=== PATIENT | female | born 1960 | race Asian ===

== ENCOUNTER 2017-01-29 02:02 | Emergency (ER) | payer OTHER ==
[~2017-01-29 02:02] MED LIST: CALCIUM + D 5001 TAB PO; CEL500 PO; EXFORGE 5 MG-321 TAB PO; EXFORGE1 TA1 PO; FLA500 PO; FOLIC ACID PO; FOLIC ACID1 MG; FOSAMAX5 MG PO; IBIFON 600600 MG PO; LAC PO; LEU5; LEVAQUIN750 MG PO; MED4 PO; METFORMIN ER500 M1 PO; METFORMIN500 MG PO; METHOTREXATE2.5 M2; METHOTREXATE2.5 M2 PO; METHOTREXATE25 MG/M1 IJ; PREDNISONE1 MG PO
[2017-01-29 03:50] VITALS: BP 158/86
== END 2017-01-29 03:50 | disposition home or self-care (01) ==
LOC: ED 02:02
DX: I10 Essential (primary) hypertension (principal); E11.9 Type 2 diabetes mellitus without complications; Z79.899 Other long term (current) drug therapy; Z79.84 Long term (current) use of oral hypoglycemic drugs
CPT/HCPCS: J1200; J2765; J7030

== ENCOUNTER 2017-09-10 15:26 | Inpatient (IN) | payer OTHER ==
[~2017-09-10] VITALS: Ht 157.5 cm; Wt 61.7 kg
[~2017-09-10 15:26] MED LIST changes: -METHOTREXATE2.5 M2
[2017-09-10 17:05] LABS: UA SPECIFIC GRAVITY 1.015 (1.005-1.035); microscopic required? YES; urine erythrocyte 2+ (NEGATIVE)
[2017-09-10 17:08] LABS: PLATELET COUNT 301 x10^3mcL (130-400)
[2017-09-10 17:14] LABS: RED CELL DISTRIBUTION WIDTH 14.7 % (11.5-14.5)
[2017-09-10 17:15] LABS: CALCIUM 8.4 mg/dL (8.5-10.1); CARBON DIOXIDE 25.8 mmol/L (21-32); CHLORIDE SERUM 98 mmol/L (98-107); CREATININE SERUM 0.8 mg/dL (0.6-1.0); GFR1 > 60 mL/min; GLUCOSE SERUM 149 mg/dL (74-106); POTASSIUM SERUM 3.2 mmol/L (3.5-5.1); SODIUM SERUM 135 mmol/L (136-145)
[2017-09-10 17:25] LABS: ALBUMIN 3.6 g/dL (3.4-5.0); ALKALINE PHOSPHATASE 81 U/L (46-116); ALT/SGPT 50 U/L (14-59); AST/SGOT 31 U/L (15-37); TOTAL PROTEIN, SERUM 7.6 g/dL (6.4-8.2)
[2017-09-10 17:45] LABS: BAND NEUTROPHIL 16 % (0-10); BASOPHIL 0 % (0-2); MONOCYTE 8 % (0-7); SEGMENTED NEUTROPHILS 70 % (37-75)
[2017-09-10 17:46] LABS: PLATELET MORPHOLOGY PLATELETS NORMAL
[2017-09-10 17:47] LABS: CK-MB < 0.5 ng/mL (0-3.6); CREATINE KINASE 58 U/L (26-192); rbc morphology (normal/abnorm) NORMAL (NORMAL)
[2017-09-10] MEDS ORDERED: AMBIEN5 MG PO (17:55)
[2017-09-10] MEDS ORDERED: METFORMIN HCL500 MG PO (18:00)
[2017-09-10] MEDS ORDERED: COZAAR100 MG PO (18:02)
[2017-09-10] MEDS ORDERED: OMEPRAZOLE40 M1 PO (18:03)
[2017-09-10] MEDS ORDERED: ZOF4 PO (18:05)
[2017-09-10] MEDS ORDERED: ATORVASTATIN CA40 M1 PO (18:08)
[2017-09-10] MEDS ORDERED: LORAZEPAM1 MG PO (18:09)
[2017-09-10] MEDS ORDERED: NOR5 PO (18:11)
[2017-09-10] MEDS ORDERED: NABUMETONE500 MG PO (18:12)
[2017-09-10] MEDS ORDERED: PREDNISONE1 MG PO (18:17)
[2017-09-10 19:24] LABS: MAGNESIUM 1.8 mg/dL (1.8-2.4); PHOSPHOROUS 2.4 mg/dL (2.5-4.9)
[2017-09-10 19:26] LABS: CHOLESTEROL/HDL RATIO 2.5
[2017-09-10 19:27] LABS: AMPHETAMINE QUAL UR NONE DETECTED (NEG <=1000)
[2017-09-10 19:27] LABS: T3 TOTAL 0.67 ng/mL
[2017-09-10 19:32] LABS: FREE T4 1.31 ng/dL (0.76-1.46); FREE THYROXINE INDEX 2.7 ug/dL (1.4-4.5); T4(THYROXINE) 8.2 ug/dL (4.7-13.3)
[2017-09-10 20:13] VITALS: BP 96/59
[2017-09-10 22:52] VITALS: BP 175/95
[2017-09-11] VITALS (7 sets, daily range): BP systolic 89–136; BP diastolic 54–88
[2017-09-11 06:45] LABS: CALCIUM 7.6 mg/dL (8.5-10.1); CARBON DIOXIDE 23.5 mmol/L (21-32); CHLORIDE SERUM 109 mmol/L (98-107); CREATININE SERUM 0.8 mg/dL (0.6-1.0); GFR1 > 60 mL/min; GLUCOSE SERUM 103 mg/dL (74-106); MAGNESIUM 1.7 mg/dL (1.8-2.4); POTASSIUM SERUM 3.4 mmol/L (3.5-5.1); SODIUM SERUM 143 mmol/L (136-145)
[2017-09-11 07:05] LABS: PLATELET COUNT 244 x10^3mcL (130-400); RED CELL DISTRIBUTION WIDTH 14.3 % (11.5-14.5)
[2017-09-11 09:56] LABS: BAND NEUTROPHIL 13 % (0-10); BASOPHIL 0 % (0-2); MONOCYTE 7 % (0-7); PLATELET MORPHOLOGY PLATELETS NORMAL; SEGMENTED NEUTROPHILS 75 % (37-75)
[2017-09-12 05:51] VITALS: BP 140/90
[2017-09-12 07:34] LABS: PLATELET COUNT 237 x10^3mcL (130-400)
[2017-09-12 07:40] LABS: RED CELL DISTRIBUTION WIDTH 15.4 % (11.5-14.5)
[2017-09-12 07:47] LABS: CALCIUM 7.7 mg/dL (8.5-10.1); CARBON DIOXIDE 23.7 mmol/L (21-32); CHLORIDE SERUM 108 mmol/L (98-107); CREATININE SERUM 0.6 mg/dL (0.6-1.0); GFR1 > 60 mL/min; GLUCOSE SERUM 96 mg/dL (74-106); MAGNESIUM 1.7 mg/dL (1.8-2.4); PHOSPHOROUS 1.4 mg/dL (2.5-4.9); POTASSIUM SERUM 3.4 mmol/L (3.5-5.1); SODIUM SERUM 142 mmol/L (136-145)
[2017-09-12 08:42] LABS: BASOPHIL 0 % (0-2)
[2017-09-12 08:44] LABS: rbc morphology (normal/abnorm) ABNORMAL (NORMAL); tear drop cell (dacryocyte) 1+
[2017-09-12 09:30] VITALS: BP 141/85
[2017-09-12 10:44] LABS: BAND NEUTROPHIL 5 % (0-10); SEGMENTED NEUTROPHILS 81 % (37-75)
[2017-09-12 10:45] LABS: MONOCYTE 7 % (0-7)
[2017-09-12 10:46] LABS: MYELOCYTE 0 % (0-2)
[2017-09-12 12:38] VITALS: Ht 157.5 cm; Wt 61.7 kg
[2017-09-12 13:14] VITALS: BP 128/87
[2017-09-12 17:43] VITALS: BP 114/73
[2017-09-12 21:00] VITALS: BP 149/94
[2017-09-13 05:05] VITALS: BP 127/84
[2017-09-13 06:43] LABS: BASOPHIL % 0.2 % (0-2); PLATELET COUNT 271 x10^3mcL (130-400)
[2017-09-13 06:51] LABS: CALCIUM 7.7 mg/dL (8.5-10.1); CARBON DIOXIDE 23.6 mmol/L (21-32); CHLORIDE SERUM 105 mmol/L (98-107); CREATININE SERUM 0.6 mg/dL (0.6-1.0); GFR1 > 60 mL/min; GLUCOSE SERUM 117 mg/dL (74-106); MAGNESIUM 1.8 mg/dL (1.8-2.4); PHOSPHOROUS 2.8 mg/dL (2.5-4.9); POTASSIUM SERUM 3.8 mmol/L (3.5-5.1); SODIUM SERUM 140 mmol/L (136-145)
[2017-09-13 06:56] LABS: RED CELL DISTRIBUTION WIDTH 14.8 % (11.5-14.5)
[2017-09-13 08:07] VITALS: BP 141/79
[2017-09-13 13:00] VITALS: BP 137/86
[2017-09-13 13:42] VITALS: BP 137/86
[2017-09-13] MEDS ORDERED: BACTRIM DS1 TAB PO (14:36)
[2017-09-13] MEDS ORDERED: LAC PO (14:36)
[2017-09-13] MEDS ORDERED: MOT800 PO (14:57)
[2017-09-13] MEDS ORDERED: NORCO1 TA2 PO (14:57)
== END 2017-09-13 16:00 | disposition home or self-care (01) | DRG 720 ==
LOC: ED 15:26 → DU 18:27 → EDBEDREQ 18:27 → DU 20:16
PROVIDERS: Emergency Medicine; Family Medicine
DX: A41.9 Sepsis, unspecified organism (principal); N17.0 Acute kidney failure with tubular necrosis; E11.65 Type 2 diabetes mellitus with hyperglycemia; D89.9 Disorder involving the immune mechanism, unspecified; E83.39 Other disorders of phosphorus metabolism; I10 Essential (primary) hypertension; N12 Tubulo-interstitial nephritis, not specified as acute or chronic; E11.9 Type 2 diabetes mellitus without complications; A50.02 Early congenital syphilitic osteochondropathy; E87.6 Hypokalemia; K21.9 Gastro-esophageal reflux disease without esophagitis; M81.0 Age-related osteoporosis without current pathological fracture
CPT/HCPCS: 36600; 82962; 83880; 84439; J0696; J1885; J1956; J2060; J2405; J3480; J3490; J7030; J7512; J8610; Q0092

== ENCOUNTER 2018-01-09 21:53 | Inpatient (IN) | payer OTHER ==
[~2018-01-09] VITALS: Ht 154.9 cm; Wt 64.5 kg
[~2018-01-09 21:53] MED LIST changes: +AMBIEN5 MG PO; +ATORVASTATIN CA40 M1 PO; +BACTRIM DS1 TAB PO; +COZAAR100 MG PO; +LORAZEPAM1 MG PO; +METFORMIN HCL500 MG PO; +MOT800 PO; +NABUMETONE500 MG PO; +NOR5 PO; +NORCO1 TA2 PO; +OMEPRAZOLE40 M1 PO; +ZOF4 PO
[2018-01-09 22:05] VITALS: Ht 154.9 cm; Wt 64.5 kg
[2018-01-09 22:59] LABS: UA SPECIFIC GRAVITY 1.015 (1.005-1.035); microscopic required? YES; urine erythrocyte 1+ (NEGATIVE)
[2018-01-09 23:00] LABS: PLATELET COUNT 310 x10^3mcL (130-400)
[2018-01-09 23:02] LABS: BASOPHIL % 0 % (0-2); RED CELL DISTRIBUTION WIDTH 15.1 % (11.5-14.5)
[2018-01-09 23:48] LABS: CK-MB 0.6 ng/mL (0-3.6)
[2018-01-09 23:53] LABS: CALCIUM 8.2 mg/dL (8.5-10.1); CARBON DIOXIDE 26.1 mmol/L (21-32); CHLORIDE SERUM 103 mmol/L (98-107); CREATININE SERUM 0.7 mg/dL (0.6-1.0); GFR1 > 60 mL/min; GLUCOSE SERUM 145 mg/dL (74-106); POTASSIUM SERUM 3.8 mmol/L (3.5-5.1); SODIUM SERUM 139 mmol/L (136-145)
[2018-01-10] VITALS (8 sets, daily range): BP systolic 101–134; BP diastolic 58–93
[2018-01-10 00:04] LABS: ALBUMIN 3.5 g/dL (3.4-5.0); ALKALINE PHOSPHATASE 103 U/L (46-116); ALT/SGPT 161 U/L (14-59); AST/SGOT 150 U/L (15-37); BILIRUBIN TOTAL 0.3 mg/dL (0.20-1.00); TOTAL PROTEIN, SERUM 7.2 g/dL (6.4-8.2)
[2018-01-10 01:45] LABS: MAGNESIUM 1.8 mg/dL (1.8-2.4)
[2018-01-10 02:16] LABS: AMPHETAMINE QUAL UR NONE DETECTED (See below)
[2018-01-10 06:07] LABS: PLATELET COUNT 306 x10^3mcL (130-400)
[2018-01-10 06:18] LABS: CALCIUM 8.1 mg/dL (8.5-10.1); CARBON DIOXIDE 29.2 mmol/L (21-32); CHLORIDE SERUM 105 mmol/L (98-107); CREATININE SERUM 0.6 mg/dL (0.6-1.0); GFR1 > 60 mL/min; GLUCOSE SERUM 177 mg/dL (74-106); POTASSIUM SERUM 4.1 mmol/L (3.5-5.1); SODIUM SERUM 140 mmol/L (136-145)
[2018-01-10 06:37] LABS: BASOPHIL % 0 % (0-2)
[2018-01-11 05:41] LABS: BASOPHIL % 0.1 % (0-2); PLATELET COUNT 236 x10^3mcL (130-400)
[2018-01-11 05:47] VITALS: BP 123/77
[2018-01-11 05:52] LABS: RED CELL DISTRIBUTION WIDTH 15.1 % (11.5-14.5)
[2018-01-11 05:55] LABS: CARBON DIOXIDE 25.9 mmol/L (21-32); CHLORIDE SERUM 108 mmol/L (98-107); CREATININE SERUM 0.7 mg/dL (0.6-1.0); GFR1 > 60 mL/min; GLUCOSE SERUM 113 mg/dL (74-106); POTASSIUM SERUM 3.4 mmol/L (3.5-5.1); SODIUM SERUM 141 mmol/L (136-145)
[2018-01-11 09:11] VITALS: BP 116/73
[2018-01-11 12:55] VITALS: BP 110/77
[2018-01-11 17:26] VITALS: BP 126/75
[2018-01-11 19:10] VITALS: BP 146/77
[2018-01-12 05:15] VITALS: BP 130/81
[2018-01-12 05:40] LABS: BASOPHIL % 0.4 % (0-2); PLATELET COUNT 241 x10^3mcL (130-400)
[2018-01-12 05:48] LABS: CALCIUM 8.2 mg/dL (8.5-10.1); CARBON DIOXIDE 26.2 mmol/L (21-32); CHLORIDE SERUM 109 mmol/L (98-107); CREATININE SERUM 0.8 mg/dL (0.6-1.0); GFR1 > 60 mL/min; GLUCOSE SERUM 124 mg/dL (74-106); MAGNESIUM 1.8 mg/dL (1.8-2.4); POTASSIUM SERUM 3.3 mmol/L (3.5-5.1); SODIUM SERUM 144 mmol/L (136-145)
[2018-01-12 06:26] LABS: RED CELL DISTRIBUTION WIDTH 15.1 % (11.5-14.5)
[2018-01-12 09:18] VITALS: BP 146/94
[2018-01-12 13:19] VITALS: BP 154/98
[2018-01-12 17:20] VITALS: BP 130/81
[2018-01-12 20:28] VITALS: BP 141/96
[2018-01-13 05:36] VITALS: BP 123/81
[2018-01-13 05:54] LABS: BASOPHIL % 0.5 % (0-2); PLATELET COUNT 287 x10^3mcL (130-400)
[2018-01-13 06:29] LABS: CARBON DIOXIDE 26.2 mmol/L (21-32); CHLORIDE SERUM 106 mmol/L (98-107); CREATININE SERUM 0.7 mg/dL (0.6-1.0); GFR1 > 60 mL/min; GLUCOSE SERUM 118 mg/dL (74-106); MAGNESIUM 1.8 mg/dL (1.8-2.4); PHOSPHOROUS 3.8 mg/dL (2.5-4.9); POTASSIUM SERUM 3.3 mmol/L (3.5-5.1); SODIUM SERUM 143 mmol/L (136-145)
[2018-01-13 06:34] LABS: RED CELL DISTRIBUTION WIDTH 15.2 % (11.5-14.5)
[2018-01-13 09:45] VITALS: BP 148/99
[2018-01-13 13:30] VITALS: BP 132/83
[2018-01-13 17:39] VITALS: BP 158/102
[2018-01-13 20:57] VITALS: BP 148/91
[2018-01-14 05:51] VITALS: BP 145/96
[2018-01-14 06:12] LABS: BASOPHIL % 0.4 % (0-2); PLATELET COUNT 345 x10^3mcL (130-400)
[2018-01-14 06:19] LABS: CARBON DIOXIDE 29.7 mmol/L (21-32); CHLORIDE SERUM 104 mmol/L (98-107); CREATININE SERUM 0.7 mg/dL (0.6-1.0); GFR1 > 60 mL/min; GLUCOSE SERUM 117 mg/dL (74-106); MAGNESIUM 1.6 mg/dL (1.8-2.4); PHOSPHOROUS 3.6 mg/dL (2.5-4.9); POTASSIUM SERUM 3.7 mmol/L (3.5-5.1); SODIUM SERUM 141 mmol/L (136-145)
[2018-01-14 06:24] LABS: RED CELL DISTRIBUTION WIDTH 14.9 % (11.5-14.5)
[2018-01-14 10:12] VITALS: BP 153/98
[2018-01-14 12:52] VITALS: BP 173/101
[2018-01-14 13:13] VITALS: BP 125/79
[2018-01-14 14:23] VITALS: BP 125/79
== END 2018-01-14 17:32 | disposition home health service (06) | DRG 720 ==
LOC: ED 21:53 → DU 01-10 01:39
PROVIDERS: Emergency Medicine; Internal Medicine; Internal Medicine Infectious Disease
DX: A41.9 Sepsis, unspecified organism (principal); N17.0 Acute kidney failure with tubular necrosis; N39.0 Urinary tract infection, site not specified; M31.30 Wegener's granulomatosis without renal involvement; E11.51 Type 2 diabetes mellitus with diabetic peripheral angiopathy without gangrene; E11.65 Type 2 diabetes mellitus with hyperglycemia; M81.0 Age-related osteoporosis without current pathological fracture; I10 Essential (primary) hypertension; K21.9 Gastro-esophageal reflux disease without esophagitis; B96.20 Unspecified Escherichia coli [E. coli] as the cause of diseases classified elsewhere; Z16.24 Resistance to multiple antibiotics; Z79.899 Other long term (current) drug therapy; Z98.42 Cataract extraction status, left eye; Z98.41 Cataract extraction status, right eye
CPT/HCPCS: 83880; 87804; J0692; J0696; J1885; J1956; J2405; J2543; J3010; J3370; J3475; J7030; J7512; Q0092

== ENCOUNTER 2019-04-28 10:51 | Emergency (ER) | payer OTHER ==
[~2019-04-28] VITALS: Ht 154.9 cm; Wt 65.3 kg
[2019-04-28 11:04] VITALS: Ht 154.9 cm; Wt 65.3 kg
[2019-04-28 12:47] LABS: UA SPECIFIC GRAVITY 1.025 (1.005-1.035); microscopic required? YES; urine erythrocyte TRACE (NEGATIVE)
[2019-04-28 12:48] LABS: PLATELET COUNT 342 x10^3mcL (130-400)
[2019-04-28 12:49] LABS: BASOPHIL % 0 % (0-2); RED CELL DISTRIBUTION WIDTH 15.8 % (11.5-14.5)
[2019-04-28 12:57] LABS: CALCIUM 7.3 mg/dL (8.5-10.1); CARBON DIOXIDE 29.8 mmol/L (21-32); CHLORIDE SERUM 104 mmol/L (98-107); CREATININE SERUM 0.7 mg/dL (0.6-1.0); GFR1 > 60 mL/min; GLUCOSE SERUM 127 mg/dL (74-106); POTASSIUM SERUM 3.2 mmol/L (3.5-5.1); SODIUM SERUM 140 mmol/L (136-145)
[2019-04-28 13:01] LABS: ALBUMIN 3.4 g/dL (3.4-5.0); ALKALINE PHOSPHATASE 64 U/L (46-116); ALT/SGPT 33 U/L (14-59); AST/SGOT 21 U/L (15-37); BILIRUBIN TOTAL 0.4 mg/dL (0.20-1.00); TOTAL PROTEIN, SERUM 6.5 g/dL (6.4-8.2)
[2019-04-28 16:32] VITALS: BP 118/72
== END 2019-04-28 16:32 | disposition home or self-care (01) ==
LOC: ED 10:51
PROVIDERS: Emergency Medicine
DX: N39.0 Urinary tract infection, site not specified (principal); I10 Essential (primary) hypertension; E11.9 Type 2 diabetes mellitus without complications; Z98.890 Other specified postprocedural states
CPT/HCPCS: 87804; J0696; J1885; J7030; J7060